=== PATIENT | female | born 1960 | race Caucasian/White ===

== ENCOUNTER 2020-04-16 19:24 | Inpatient (IN) ==
[2020-04-16] MEDS ORDERED: DEXAMETHASONE 4 MG TABLET PO ONE (19:39)
[2020-04-16] MEDS ORDERED: DEXAMETHASONE SODIUM PHOSP/PF 10 MG/ML VIAL IV ONE (19:44)
[2020-04-16 20:06] LABS: Hematocrit 47.7 % (37.0-47.0); Hemoglobin 15.8 gm/dL (12.5-16.0); Mean Cell Volume 90.7 fl (78-100); Mean Corpuscular Hgb Conc 33.1 g/dl (32-36); Mean Platelet Volume 8.4 fl (8-12.5); Platelet Count 322 K/mm3 (150-450); Red Blood Count 5.26 M/mm3 (4.2-5.4); Red Cell Distribution Width 12.2 % (11.5-14.0); White Blood Count 5.7 K/mm3 (4.0-10.5)
--- NOTE | 2020-04-16 20:09 | ERNOTE ---
Dyspnea - Date Date of Service: 04/16/20 - General Presenting Symptoms: shortness of breath Time Seen by Provider: 04/16/20 19:40 Source: patient Exam Limitations: no limitations - Immun/Allergies/Home Medications Immunizations: IMMUNIZATION HX Immunizations Up to Date Yes Allergies/Adverse Reactions: Allergies No Known Allergies Allergy (Verified 04/16/20 19:45) Home Medications: HOME MEDICATIONS Loratadine [Claritin] 10 mg PO DAILY PRN 04/27/12 [Last Taken Unknown] meclizine 25 mg tablet 25 mg PO TID-QID PRN #100 tab 01/03/20 [Last Taken Unknown] levothyroxine 75 mcg tablet 75 mcg PO DAILY #30 tab 02/17/20 [Last Taken Unknown] fluconazole 150 mg tablet 150 mg PO Q3D 0 Days #2 tab 03/07/20 [Last Taken Unknown] rosuvastatin 10 mg tablet See Rx Instructions .ROUTE .COMPLEX #30 unknown measurement unit code: not specified 04/10/20 [Last Taken Unknown] - History of Present Illness Narrative: 60-year-old female presents with 3-day history of gradually worsening shortness of breath. She also notes she has a sick sick contact and her he was previously tested for Covid but has not obtain the results. Patient notes she has not believe she is run a fever at this time however she has had a cough, ear pain, and shortness of breath. Patient otherwise denies no other significant acute concerns she just notes that her symptoms worsened today although she needed to be taken to the ER. Patient otherwise reports mild nausea, no significant appetite, mild fatigue. Patient denies any other significant symptoms acutely. She otherwise has no acute complaints no other significant modifying or radiating leg symptoms. She denies any other significant relieving factors. Review of Systems - Review of Systems Constitutional: Present: weakness. Absent: fever, chills EYE: Absent: blurred vision, double vision ENT: Present: ear pain, sore throat. Absent: nose congestion Respiratory: Present: shortness of breath, cough Cardiology: Absent: chest pain, syncope Gastrointestinal/Abdominal: Present: nausea. Absent: vomiting, diarrhea, constipation, abdominal pain Genitourinary: Present: no symptoms reported Musculoskeletal: Absent: back pain, joint pain Skin: Absent: rash Neurological: Absent: headache, dizziness/light-headedness, weakness, numbness, tingling Endocrine: Present: no symptoms reported Hematologic/Lymphatic: Present: no symptoms reported Psych: Present: no symptoms reported All Other Systems: All systems neg except as marked Medical History (Last Reviewed 04/16/20 @ 20:00 by HAILEY Metcalf) Abdominal pain (Acute) Bursitis Onset Date: 2010 bilateral Achilles Contact dermatitis Diarrhea Onset Date: 2013 colitis-resolved 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 Recheck 10 yrs History of foot surgery Onset Date: 2010 Dr DelacruzHyeuxytm-ujctj-auonajl of Breann deformity History of hysterectomy Onset Date: 1992 Dr Gomes-abd History of sinus surgery Onset Date: 2002 History of tonsillectomy Onset Date: 1995 Family History: Family History (Last Reviewed 04/16/20 @ 20:00 by HAILEY Metcalf) Sister Blood disorder Father , age 69 Skin cancer Prostate cancer Mother , age 83 Diabetes CAD (coronary artery disease) Social History: (Last Reviewed 04/16/20 @ 20:01 by HAILEY Metcalf) Social History: Marital status: household members: spouse current occupational status: retired Highest level of school completed/degree received: high school graduate Service: No Tobacco: Smoking Status: Never smoker Alcohol: alcohol intake: current alcohol intake frequency: holiday/special occasion Substance Use: substance use type: does not use Dietary Habits: caffeine: Yes Physical Exam - Physical Exam General Appearance: Present: wd/wn, alert, mild distress Head Exam: Present: normal inspection, no evidence of injury Eye Exam: Normal inspection: bilateral, PERRL: bilateral, EOMI: bilateral Ears, Nose, Throat: Present: normal ENT inspection, normal pharynx Neck: Present: normal inspection, nontender, full range of motion Respiratory: Present: normal breath sounds, no accessory muscle use, chest nontender, lungs clear, respiratory distress - mild Cardiovascular/Chest: Present: no murmur, tachycardia Gastrointestinal/Abdominal: Present: normal bowel sounds, nontender, nondistended, soft Extremity Exam: Present: normal inspection, non-tender, normal range of motion, no edema Neurological Exam: Present: alert, oriented, normal mood/affect, no motor/sensory deficits Skin Exam: Present: normal color, warm/dry Progress - Date and Time Seen: Date and Time: 04/16/20 20:09 60-year-old female presents today with gradual worsening shortness of breath. Possible sick contact of her who is been tested for COVID-19 awaiting results. Patient has noticed gradual shortness of breath increasing over the past few days, clinically presented with O2 sats of 84%. Patient was placed on a nasal cannula with 1 L drastic improvement in her O2 sat to approximately 94 to 96%. Patient otherwise does not have any significant complaints acutely no significant chest pain, EKG revealed normal sinus rhythm. Chest x-ray was obtained revealing diffuse bilateral infiltrates concern for COVID-19. Ordered a set of baseline labs including CBC, CMP, D-dimer, CRP. Also ordered patient a baseline dose of Decadron. Patient clinically is improving with nasal cannula oxygen we will continue to monitor, COVID-19 rapid test will be performed. We will continue to monitor patient's symptoms acutely adjust treatment plan accordingly. 04/16/20 21:35 COVID-19 test result was positive, she otherwise has minimal acute lab findings, and low potassium that was treated with p.o. potassium. Patient has drastically improved and her vital signs with nasal cannula O2. Called to discuss case with Dr. Sun due to her low O2 saturation upon presentation and requirement of oxygen would admit this patient for continued monitoring. Dr. Sun wishes to treat patient with remdesivir as well as Lovenox for prophylactic anticoagulation at this time. Patient will be admitted to the floor Covid unit for continued monitoring and care. Dr. Ruth accepted this admit and expressed understanding this treatment plan. Discussed treatment plan with the patient she agrees to proceed we will continue to monitor will adjust acutely accordingly while she is in the ED. - Results and Orders Patient's Lab Results:: I have reviewed the patient's lab results. Results and Orders: Laboratory Last Values WBC 5.7 K/mm3 (4.0-10.5) 04/16/20 20:00 RBC 5.26 M/mm3 (4.2-5.4) 04/16/20 20:00 Hgb 15.8 gm/dL (12.5-16.0) 04/16/20 20:00 Hct 47.7 % (37.0-47.0) H 04/16/20 20:00 MCV 90.7 fl (78-100) 04/16/20 20:00 MCH 30.0 pg (27-31) 04/16/20 20:00 MCHC 33.1 g/dl (32-36) 04/16/20 20:00 RDW 12.2 % (11.5-14.0) 04/16/20 20:00 Plt Count 322 K/mm3 (150-450) 04/16/20 20:00 MPV 8.4 fl (8-12.5) 04/16/20 20:00 Neutrophils % (Manual) 46 % (42-75) 04/16/20 20:00 Lymphocytes % (Manual) 40 % (20-51) 04/16/20 20:00 Monocytes % (Manual) 9 % (0-9) 04/16/20 20:00 Eosinophils % (Manual) 2 % (0-3) 04/16/20 20:00 Neutrophils # (Manual) 2.6 K/mm3 (1.3-6.0) 04/16/20 20:00 Lymphocytes # (Manual) 2.3 k/mm3 (1.5-3.5) 04/16/20 20:00 Monocytes # (Manual) 0.5 k/mm3 (0.0-1.0) 04/16/20 20:00 Eosinophils # (Manual) 0.1 k/mm3 (0.0-0.7) 04/16/20 20:00 Atypic/Reactive Lymphs 3 % (0-2) H 04/16/20 20:00 D-Dimer 1.71 ug/mL (0.19-0.49) H 04/16/20 20:00 Sodium 137 mmol/L (132-142) 04/16/20 20:00 Plasma Sodium 137 mmol/L (130-142) 04/16/20 20:00 Potassium 3.2 mmol/L (3.4-4.6) L 04/16/20 20:00 Chloride 103 mmol/L (97-106) 04/16/20 20:00 Carbon Dioxide 26.8 mmol/L (24-32.6) 04/16/20 20:00 Anion Gap 10.4 mmol/L (6.8-13.8) 04/16/20 20:00 BUN 12 mg/dL (3-23) 04/16/20 20:00 Creatinine 0.55 mg/dL (0.4-1.4) 04/16/20 20:00 Est GFR (Non-Af Amer) 120 mL/min (60-130) D 04/16/20 20:00 BUN/Creatinine Ratio 21.8 (9.0-21.6) H 04/16/20 20:00 Random Glucose 125 mg/dL (70-110) H 04/16/20 20:00 Calcium 8.8 mg/dL (7.9-10.9) 04/16/20 20:00 Calcium Adj for Albumin 9.2 mg/dL (8.4-10.2) 04/16/20 20:00 Total Bilirubin 0.6 mg/dL (0.0-1.1) 04/16/20 20:00 AST 47 U/L (0-48) 04/16/20 20:00 ALT 49 U/L (19-67) 04/16/20 20:00 Alkaline Phosphatase 99 U/L (50-170) 04/16/20 20:00 C-Reactive Prot, Quant 6.1 mg/dL (0.0-0.9) H 04/16/20 20:00 Total Protein 7.6 gm/dL (6.2-8.2) 04/16/20 20:00 Albumin 3.1 gm/dl (3.4-5.0) L 04/16/20 20:00 SARS-CoV-2 (PCR) Detected (NotDetected) H 04/16/20 20:00 - Vital Signs Patient's Vital Signs:: I have reviewed the patient's vital signs. Vital Signs: Vital Signs 04/16/20 19:25 Temperature 37.2 C Pulse Rate 103 H Respiratory Rate 21 H Blood Pressure 136/79 O2 Sat by Pulse Oximetry 84 L - EKG EKG #1 EKG: NSR EKG read: Interp. by me EKG Comments: Normal EKG sinus rhythm, reviewed with physician on staff - X-Ray X-Ray #1 X-Ray: chest Interpretation: Interp. by me X-ray Comments: Diffuse bilateral infiltrates consistent with significant pulmonary congestion, no significant cardiac enlargement, no significant changes in the diaphragm, no acute osseous pathology identified, significant concern for COVID-19 - Progress/Reassessment Chief Complaint: Dyspnea Plan - Plan [facility] Departure Clinical Impression: COVID-19 - Departure Disposition: Still a patient Condition: Stable
[2020-04-16 20:15] LABS: Total Cells Counted 100
[2020-04-16 20:19] LABS: Albumin * 3.1 gm/dl (3.4-5.0); Anion Gap 10.4 mmol/L (6.8-13.8); BUN/Creatinine Ratio 21.8 (9.0-21.6); Bilirubin, Total 0.6 mg/dL (0.0-1.1); CRP 6.1 mg/dL (0.0-0.9); Ca. Corrected For Albumin 9.2 mg/dL (8.4-10.2); Calcium * 8.8 mg/dL (7.9-10.9); Carbon Dioxide 26.8 mmol/L (24-32.6); Potassium 3.2 mmol/L (3.4-4.6); Total Protein 7.6 gm/dL (6.2-8.2)
[2020-04-16] MEDS ORDERED: POTASSIUM CHLORIDE 20 MEQ TABLET.SA PO ONE (20:22)
[2020-04-16 20:50] LABS: Atypical (Reactive) Lymph 3 % (0-2); Eosinophil 2 % (0-3); Lymphocyte 40 % (20-51); Monocyte 9 % (0-9); Neutrophil 46 % (42-75); Neutrophil # 2.6 K/mm3 (1.3-6.0)
[2020-04-16] MEDS ORDERED: ENOXAPARIN SODIUM 30 MG/0.3 ML SYRG SC ONE (21:32)
[2020-04-16] MEDS ORDERED: REMDESIVIR 200 MG in NORMAL SALINE 210 ML IV ONE (22:04)
[2020-04-17] MEDS ORDERED: LEVOTHYROXINE SODIUM 25 MCG TABLET ONE (07:39)
[2020-04-17] MEDS: LEVOTHYROXINE SODIUM 75 MCG TABLET PO SCH (07:45)
[2020-04-17] MEDS: ACETAMINOPHEN 325 MG TABLET PO PRN (07:47)
[2020-04-17 08:38] LABS: Albumin * 2.9 gm/dl (3.4-5.0); Anion Gap 13.9 mmol/L (6.8-13.8); Bilirubin, Total 0.5 mg/dL (0.0-1.1); Ca. Corrected For Albumin 9.6 mg/dL (8.4-10.2); Carbon Dioxide 22.9 mmol/L (24-32.6); Potassium 3.8 mmol/L (3.4-4.6); Total Protein 7.5 gm/dL (6.2-8.2)
--- NOTE | 2020-04-17 10:15 | HP ---
Chief Complaint - Chief Complaint Date of Service: 04/17/20 Time of Service: 10:03 Chief Complaint: cough, body aches, positive covid History of Present Illness: Patient with PMHx of HTN and hypothyroidism presents with hypoxia on home pulse ox. She started having body aches and feeling chilled earlier this week. She has body aches at baseline, so it was difficult for her to say definitely when symptoms started. Her pulse ox showed that her oxygen was in the 80's yesterday so she came to the ED. COVID positive. D dimer slightly elevated at 1.71. CXR showed bilateral heterogenous opacities. Her WBC was normal at 5.7. Slightly hypokalemic with K+ of 3.0. Initial spO2 was 84, so she was started on 1L oxygen, with improvement to the 90's. She briefly required 5L this morning, but this has already improved to 2L. She was admitted for covid hypoxia. 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 Recheck 10 yrs History of foot surgery Onset Date: 2010 Dr DelacruzXqnnsfnx-knjfy-rbfwpru of Breann deformity History of hysterectomy Onset Date: 1992 Dr Gomes-marcos History of sinus surgery Onset Date: 2002 History of tonsillectomy Onset Date: 1995 Family History: Family History (Last Reviewed 04/16/20 @ 20:07 by Rachel Angela RN) Sister Blood disorder Father , age 69 Prostate cancer Skin cancer Mother , age 83 CAD (coronary artery disease) Diabetes Social History: (Last Reviewed 04/16/20 @ 20:07 by Rachel Angela RN) Social History: Marital status: household members: spouse current occupational status: retired Highest level of school completed/degree received: high school graduate Service: No Tobacco: Smoking Status: Never smoker Alcohol: alcohol intake: current alcohol intake frequency: holiday/special occasion Substance Use: substance use type: does not use Dietary Habits: caffeine: Yes Review Of Systems (GEN) - Review of Systems Generalized/Overall Review: Present: Chills. Absent: Fever Respiratory: Present: Cough, Shortness of Breath Cardiac: Absent: Chest Pain, Edema Abdominal: Present: No Symptoms Reported Genitourinary: Present: No Symptoms Reported Musculoskeletal: Present: Other - body aches Neurological: Present: Headache Immunizations: IMMUNIZATION HX Immunizations Up to Date Yes Allergies/Adverse Reactions: Allergies Allergy/AdvReac Type Severity Reaction Status Date / Time No Known Allergies Allergy Verified 04/16/20 19:45 Home Medications: HOME MEDICATIONS Loratadine [Claritin] 10 mg PO DAILY PRN 04/27/12 [Last Taken Unknown] levothyroxine 75 mcg tablet 75 mcg PO DAILY #30 tab 02/17/20 [Last Taken Unknown] rosuvastatin 10 mg tablet See Rx Instructions .ROUTE .COMPLEX #30 unknown measurement unit code: not specified 04/10/20 [Last Taken Unknown] Exam - Exam Vital Signs: Vital Signs - Last Taken Temp 36.3 C 04/17/20 06:35 Pulse 90 04/17/20 06:35 Resp 20 04/17/20 06:35 BP 144/66 H 04/17/20 06:35 Pulse Ox 90 L 04/17/20 06:35 Constitutional: Present: Alert, Cooperative, No distress, Obese Respiratory: Present: lungs clear, normal breath sounds, other - using 2L via NC Cardiovascular/Chest: Present: regular rate, rhythm Abdomen: Present: soft, nontender Extremity: Absent: lower extremity edema Neurologic: Present: normal mood/affect Eye contact: Present: cooperative, good eye contact Diagnostic Studies: Abnormal Lab Results 04/16/20 04/16/20 04/16/20 Range/Units 20:00 20:00 20:00 Hct 47.7 H (37.0-47.0) % Atypic/Reactive Lymphs 3 H (0-2) % D-Dimer (0.19-0.49) ug/mL Potassium 3.2 L (3.4-4.6) mmol/L Carbon Dioxide (24-32.6) mmol/L Anion Gap (6.8-13.8) mmol/L BUN/Creatinine Ratio 21.8 H (9.0-21.6) Random Glucose 125 H (70-110) mg/dL C-Reactive Prot, Quant 6.1 H (0.0-0.9) mg/dL Albumin 3.1 L (3.4-5.0) gm/dl SARS-CoV-2 (PCR) Detected H (NotDetected) 04/16/20 04/17/20 Range/Units 20:00 06:59 Hct (37.0-47.0) % Atypic/Reactive Lymphs (0-2) % D-Dimer 1.71 H (0.19-0.49) ug/mL Potassium (3.4-4.6) mmol/L Carbon Dioxide 22.9 L (24-32.6) mmol/L Anion Gap 13.9 H (6.8-13.8) mmol/L BUN/Creatinine Ratio 22.0 H (9.0-21.6) Random Glucose 191 H D (70-110) mg/dL C-Reactive Prot, Quant (0.0-0.9) mg/dL Albumin 2.9 L (3.4-5.0) gm/dl SARS-CoV-2 (PCR) (NotDetected) Laboratory Results WBC 5.7 K/mm3 (4.0-10.5) 04/16/20 20:00 RBC 5.26 M/mm3 (4.2-5.4) 04/16/20 20:00 Hgb 15.8 gm/dL (12.5-16.0) 04/16/20 20:00 Hct 47.7 % (37.0-47.0) H 04/16/20 20:00 MCV 90.7 fl (78-100) 04/16/20 20:00 MCH 30.0 pg (27-31) 04/16/20 20:00 MCHC 33.1 g/dl (32-36) 04/16/20 20:00 RDW 12.2 % (11.5-14.0) 04/16/20 20:00 Plt Count 322 K/mm3 (150-450) 04/16/20 20:00 MPV 8.4 fl (8-12.5) 04/16/20 20:00 Neutrophils % (Manual) 46 % (42-75) 04/16/20 20:00 Lymphocytes % (Manual) 40 % (20-51) 04/16/20 20:00 Monocytes % (Manual) 9 % (0-9) 04/16/20 20:00 Eosinophils % (Manual) 2 % (0-3) 04/16/20 20:00 Neutrophils # (Manual) 2.6 K/mm3 (1.3-6.0) 04/16/20 20:00 Lymphocytes # (Manual) 2.3 k/mm3 (1.5-3.5) 04/16/20 20:00 Monocytes # (Manual) 0.5 k/mm3 (0.0-1.0) 04/16/20 20:00 Eosinophils # (Manual) 0.1 k/mm3 (0.0-0.7) 04/16/20 20:00 Atypic/Reactive Lymphs 3 % (0-2) H 04/16/20 20:00 D-Dimer 1.71 ug/mL (0.19-0.49) H 04/16/20 20:00 Sodium 137 mmol/L (132-142) 04/17/20 06:59 Plasma Sodium 138 mmol/L (130-142) 04/17/20 06:59 Potassium 3.8 mmol/L (3.4-4.6) 04/17/20 06:59 Chloride 104 mmol/L (97-106) 04/17/20 06:59 Carbon Dioxide 22.9 mmol/L (24-32.6) L 04/17/20 06:59 Anion Gap 13.9 mmol/L (6.8-13.8) H 04/17/20 06:59 BUN 13 mg/dL (3-23) 04/17/20 06:59 Creatinine 0.59 mg/dL (0.4-1.4) 04/17/20 06:59 Est GFR (Non-Af Amer) 111 mL/min (60-130) 04/17/20 06:59 BUN/Creatinine Ratio 22.0 (9.0-21.6) H 04/17/20 06:59 Random Glucose 191 mg/dL (70-110) H D 04/17/20 06:59 Calcium 9.0 mg/dL (7.9-10.9) 12 06:59 Calcium Adj for Albumin 9.6 mg/dL (8.4-10.2) 04/17/20 06:59 Total Bilirubin 0.5 mg/dL (0.0-1.1) 04/17/20 06:59 AST 44 U/L (0-48) 12 06:59 ALT 44 U/L (19-67) 04/17/20 06:59 Alkaline Phosphatase 92 U/L (50-170) 04/17/20 06:59 C-Reactive Prot, Quant 6.1 mg/dL (0.0-0.9) H 04/16/20 20:00 Total Protein 7.5 gm/dL (6.2-8.2) 04/17/20 06:59 Albumin 2.9 gm/dl (3.4-5.0) L 04/17/20 06:59 SARS-CoV-2 (PCR) Detected (NotDetected) H 04/16/20 20:00 Assessment/Plan - Narrative Narrative: She was started on remdesivir, decadron, and lovenox in the ED and will continue. Her oxygen requirement increased briefly this morning, but has improved to 2L via NC. Monitor oxygen requirements and wean as tolerated. DC in greater than 24 hours. - Assessment/Plan (1) Pneumonia due to COVID-19 virus Problem: Acute (2) Respiratory failure with hypoxia Problem: Acute (3) Hypertension Problem: Chronic (4) Hypothyroidism Problem: Chronic
[2020-04-17] MEDS: ROSUVASTATIN CALCIUM 10 MG TABLET PO SCH (20:39)
[2020-04-17] MEDS: DEXAMETHASONE SODIUM PHOSP/PF 10 MG/ML VIAL IV SCH (20:39)
[2020-04-17] MEDS: ENOXAPARIN SODIUM 40 MG/0.4 ML SYRG SC SCH (20:41)
[2020-04-17] MEDS: REMDESIVIR 100 MG in NORMAL SALINE 230 ML IV SCH (21:51)
[2020-04-17] MEDS: ACETAMINOPHEN 500 MG TABLET PO PRN (21:51)
[2020-04-17] MEDS: diphenhydrAMINE HCL 25 MG CAPSULE PO PRN (21:52)
[2020-04-18 06:59] LABS: Albumin * 2.8 gm/dl (3.4-5.0); Anion Gap 13.1 mmol/L (6.8-13.8); BUN/Creatinine Ratio 28.6 (9.0-21.6); Bilirubin, Total 0.4 mg/dL (0.0-1.1); Ca. Corrected For Albumin 9.5 mg/dL (8.4-10.2); Calcium * 8.9 mg/dL (7.9-10.9); Carbon Dioxide 24.6 mmol/L (24-32.6); Potassium 3.7 mmol/L (3.4-4.6); Total Protein 7.2 gm/dL (6.2-8.2)
[2020-04-18] MEDS: LEVOTHYROXINE SODIUM 75 MCG TABLET PO SCH (08:06)
[2020-04-18] MEDS: ACETAMINOPHEN 325 MG TABLET PO PRN (08:11)
--- NOTE | 2020-04-18 08:21 | PN ---
Subjective - Date and Time Seen Date: 04/18/20 Time: 08:21 Subjective Narrative: O2 requirement increased overnight, but already improving this morning. She feels like she's getting better. Objective - Review of Systems Generalized/Overall Review: Denies: Fever Respiratory: Reports: Cough, Shortness of Breath Cardiac: Denies: Edema Abdominal: Denies: Vomiting Genitourinary Symptoms: Reports: No Symptoms Reported Neurological: Reports: No Symptoms Reported - Vitals Vitals: Last Vital Signs Temp 36.6 C 04/18/20 06:13 Pulse 54 L 04/18/20 06:13 Resp 20 04/18/20 06:13 BP 122/74 04/18/20 06:13 Pulse Ox 91 L 04/18/20 06:13 - Abnormal Lab Findings Abnormal Lab Findings: Abnormal Lab Results 04/17/20 04/18/20 Range/Units 06:59 06:30 Carbon Dioxide 22.9 L (24-32.6) mmol/L Anion Gap 13.9 H (6.8-13.8) mmol/L BUN/Creatinine Ratio 22.0 H 28.6 H (9.0-21.6) Random Glucose 191 H D 164 H (70-110) mg/dL Albumin 2.9 L 2.8 L (3.4-5.0) gm/dl - Exam Constitutional: Present: Alert, Cooperative, No distress, Obese Respiratory: Present: lungs clear, normal breath sounds, other - wearing 2L via NC Cardiovascular/Chest: Present: regular rate, rhythm Abdomen: Present: soft Extremity: Absent: lower extremity edema Eye contact: Present: cooperative, good eye contact Assessment/Plan Plan Narrative: She feels like she's slowly improving, but she did need increased oxygen overnight. Will continue to wean as tolerate, but will need at least one additional midnight in hospital. continue remdesivir, lovenox, decadron. - Problems/Diagnosis (1) Pneumonia due to COVID-19 virus Problem: Acute (2) Respiratory failure with hypoxia Problem: Acute (3) Hypertension Problem: Chronic (4) Hypothyroidism Problem: Chronic
[2020-04-18] MEDS: DEXAMETHASONE SODIUM PHOSP/PF 10 MG/ML VIAL IV SCH (20:29)
[2020-04-18] MEDS: ENOXAPARIN SODIUM 40 MG/0.4 ML SYRG SC SCH (20:29)
[2020-04-18] MEDS: ROSUVASTATIN CALCIUM 10 MG TABLET PO SCH (20:29)
[2020-04-18] MEDS: ACETAMINOPHEN 500 MG TABLET PO PRN (22:16)
[2020-04-18] MEDS: diphenhydrAMINE HCL 25 MG CAPSULE PO PRN (22:16)
[2020-04-18] MEDS: REMDESIVIR 100 MG in NORMAL SALINE 230 ML IV SCH (22:17)
[2020-04-19] MEDS: LEVOTHYROXINE SODIUM 75 MCG TABLET PO SCH (07:01)
[2020-04-19 07:39] LABS: Albumin * 2.9 gm/dl (3.4-5.0); Anion Gap 15.3 mmol/L (6.8-13.8); BUN/Creatinine Ratio 29.7 (9.0-21.6); Calcium * 9.2 mg/dL (7.9-10.9); Carbon Dioxide 24.4 mmol/L (24-32.6); Potassium 3.7 mmol/L (3.4-4.6)
[2020-04-19 07:40] LABS: Bilirubin, Total 0.4 mg/dL (0.0-1.1); Ca. Corrected For Albumin 9.8 mg/dL (8.4-10.2)
--- NOTE | 2020-04-19 13:08 | DS ---
(1) Pneumonia due to COVID-19 virus Problem: Acute (2) Respiratory failure with hypoxia Problem: Resolved (3) Hypertension Problem: Chronic (4) Hypothyroidism Problem: Chronic Date of Discharge:: 04/19/20 Hospital Course: Patient with PMHx of HTN and hypothyroidism presents with hypoxia on home pulse ox. She started having body aches and feeling chilled earlier this week. She has body aches at baseline, so it was difficult for her to say definitely when symptoms started. Her pulse ox showed that her oxygen was in the 80's so she came to the ED and was COVID positive. D dimer slightly elevated at 1.71. CXR showed bilateral heterogenous opacities. Her WBC was normal at 5.7. Slightly hypokalemic with K+ of 3.0. Initial spO2 was 84, so she was started on 1L oxygen, with improvement to the 90's. She was admitted for covid hypoxia. She spent 3 midnights in the hospital, and was able to wean from O2. Her maximum oxygen requirement was 4L via NC. She received remdesivir, lovenox, and decadron while hospitalized. Will send home with cough medication and have her follow up with her PCP in the next few days via phone/video visit. Procedures Performed: none Results and Findings: Lab Pending Results 04/16/20 20:00: WBC 5.7, RBC 5.26, Hgb 15.8, Hct 47.7 H, MCV 90.7, MCH 30.0, MCHC 33.1, RDW 12.2, Plt Count 322, MPV 8.4, Neutrophils % (Manual) 46, Lymphocytes % (Manual) 40, Monocytes % (Manual) 9, Eosinophils % (Manual) 2, Neutrophils # (Manual) 2.6, Lymphocytes # (Manual) 2.3, Monocytes # (Manual) 0.5, Eosinophils # (Manual) 0.1, Atypic/Reactive Lymphs 3 H 04/16/20 20:00: Sodium 137, Plasma Sodium 137, Potassium 3.2 L, Chloride 103, Carbon Dioxide 26.8, Anion Gap 10.4, BUN 12, Creatinine 0.55, Est GFR (Non-Af Amer) 120 D, BUN/Creatinine Ratio 21.8 H, Random Glucose 125 H, Calcium 8.8, Calcium Adj for Albumin 9.2, Total Bilirubin 0.6, AST 47, ALT 49, Alkaline Phosphatase 99, C-Reactive Prot, Quant 6.1 H, Total Protein 7.6, Albumin 3.1 L 04/16/20 20:00: SARS-CoV-2 (PCR) Detected H 04/16/20 20:00: D-Dimer 1.71 H 04/17/20 06:59: Sodium 137, Plasma Sodium 138, Potassium 3.8, Chloride 104, Carbon Dioxide 22.9 L, Anion Gap 13.9 H, BUN 13, Creatinine 0.59, Est GFR (Non- Af Amer) 111, BUN/Creatinine Ratio 22.0 H, Random Glucose 191 H D, Calcium 9.0, Calcium Adj for Albumin 9.6, Total Bilirubin 0.5, AST 44, ALT 44, Alkaline Phosphatase 92, Total Protein 7.5, Albumin 2.9 L 04/18/20 06:30: Sodium 139, Plasma Sodium 140, Potassium 3.7, Chloride 105, Carbon Dioxide 24.6, Anion Gap 13.1, BUN 16, Creatinine 0.56, Est GFR (Non-Af Amer) 118, BUN/Creatinine Ratio 28.6 H, Random Glucose 164 H, Calcium 8.9, Calcium Adj for Albumin 9.5, Total Bilirubin 0.4, AST 30, ALT 40, Alkaline Phosphatase 83, Total Protein 7.2, Albumin 2.8 L 04/19/20 07:19: Sodium 140, Plasma Sodium 141, Potassium 3.7, Chloride 104, Carbon Dioxide 24.4, Anion Gap 15.3 H, BUN 19, Creatinine 0.64, Est GFR (Non-Af Amer) 101, BUN/Creatinine Ratio 29.7 H, Random Glucose 147 H, Calcium 9.2, Calcium Adj for Albumin 9.8, Total Bilirubin 0.4, AST 22, ALT 37, Alkaline Phosphatase 72, Total Protein 7.0, Albumin 2.9 L Discharge Location: Home Disposition: Home self-care Condition: Stable Discharge Activity: Activity as tolerated Discharge Diet: General/regular food Referrals: Savanah Lancaster MD [Primary Care Provider] - One Week Additional Patient Instructions (free text): Please schedule telephone or video visit with her PCP on 04/21/20 or 04/24/20. Prescriptions (Any new or edited meds): guaiFENesin [Tussin] 100 mg PO Q6H PRN #1 bottle PRN Reason: Cough Transmission Status: Pending to [facility], [place], [place] Complete Home Medications List: Complete Home Medication List: Loratadine [Claritin] 10 mg PO DAILY PRN 04/27/12 levothyroxine 75 mcg tablet 75 mcg PO DAILY #30 tab 02/17/20 rosuvastatin 10 mg tablet See Rx Instructions .ROUTE .COMPLEX #30 unknown measurement unit code: not specified 04/10/20 guaiFENesin [Tussin] 100 mg PO Q6H PRN #1 bottle 04/19/20
[2020-04-19 14:05] VITALS: BP 131/77
== END 2020-04-19 15:09 | disposition home or self-care (01) | DRG 177 ==
LOC: ER 19:24 → MS 22:03
PROVIDERS: ADMIT Family Medicine; ATTEND Family Medicine